=== PATIENT | male | born 1955 | race Caucasian/White ===

== ENCOUNTER 2021-07-01 07:20 | Outpatient (CLI) | payer MEDICARE, OTHER, SELFPAY ==
--- NOTE | 2021-07-01 07:00 | XR_ITS ---
WS: [id number] XR KUB [id number] REASON FOR EXAM: BILATERAL KIDNEY STONES FINDINGS: There are multiple large calculi within the right kidney with a partial staghorn calculus with a maxi mum dimension of 30 mm. The number, size, and position of these calculi have not changed since the pr evious examination of 11/08/2018. There are several moderate to large size calculi in the lower left kidney. These have not changed in number, size, or position compared to the previous examination of 11/08/2018. No other urinary tract calculi are identified in the abdomen or pelvis. No free air or retroperitoneal air. Unremarkable bowel gas pattern. No mass identified. XR/XR KUB [id number] IMPRESSION: Stable intrarenal calculi as above.
== END 2021-07-01 07:21 | disposition home or self-care (01) ==
PROVIDERS: PCP Internal Medicine; Visit Provider Urology
DX: N20.0 Calculus of kidney (principal); N40.1 Benign prostatic hyperplasia with lower urinary tract symptoms
CPT/HCPCS: 74018; 81003

== ENCOUNTER 2021-11-28 07:03 | Outpatient (CLI) | payer MEDICARE, OTHER, SELFPAY ==
[2021-11-28 08:37] LABS: Prostate Specific Antigen 0.752 ng/mL (0-4)
== END 2021-11-28 07:04 | disposition home or self-care (01) ==
LOC: LAB 07:07
PROVIDERS: PCP Internal Medicine; Visit Provider Urology
DX: N40.1 Benign prostatic hyperplasia with lower urinary tract symptoms (principal); N13.8 Other obstructive and reflux uropathy; N20.0 Calculus of kidney; R82.991 Hypocitraturia; N48.0 Leukoplakia of penis
CPT/HCPCS: 51741; 51798; 81003; 84153; 99213

== ENCOUNTER 2022-08-07 06:54 | Outpatient (CLI) | payer MEDICARE, OTHER, SELFPAY ==
--- NOTE | 2022-08-07 07:17 | XR_ITS ---
WS: [id number] XR KUB [id number] REASON FOR EXAM: Bilateral Kidney Stone FINDINGS: There are 5 identifiable calculi (3 mm to 29 mm) in the right kidney that are unchanged in size, numb er, and position compared to 07/01/2021. There are 3 identifiable oblique calculi (5 to 9 mm) overlying the lower pole of the left kidney whic h are unchanged in size, number, and position. No other urinary tract calculi are identified. No other significant abdominal abnormality. XR/XR KUB [id number] IMPRESSION: Stable multiple renal calculi as above.
== END 2022-08-07 06:55 | disposition home or self-care (01) ==
LOC: RAD 06:56
PROVIDERS: PCP Internal Medicine; Visit Provider Urology
DX: N20.0 Calculus of kidney (principal); N40.1 Benign prostatic hyperplasia with lower urinary tract symptoms; N13.8 Other obstructive and reflux uropathy; R82.991 Hypocitraturia; R82.992 Hyperoxaluria; N48.0 Leukoplakia of penis
CPT/HCPCS: 74018; 99213

== ENCOUNTER 2022-12-01 13:00 | Outpatient (CLI) | payer MEDICARE, OTHER, SELFPAY | END 2022-12-01 13:01 | disposition home or self-care (01) | LOC: SLEEP 12-02 09:04 | PROVIDERS: PCP Internal Medicine; Visit Provider Internal Medicine | DX: G47.10 Hypersomnia, unspecified (principal) | CPT/HCPCS: G0399 ==

== ENCOUNTER 2023-11-09 07:30 | Outpatient (CLI) | payer MEDICARE, OTHER, SELFPAY ==
--- NOTE | 2023-11-09 07:38 | XRR_ITS ---
PROCEDURE INFORMATION: Exam: XR Abdomen Exam date and time: 11/09/2023 7:52 AM Age: 68 years old Clinical indication: Condition or disease; Kidney or ureter condition; Other: Nephrolithiasis; Prior surgery; Surgery date: 6+ months; Surgery type: Stent placed in right ureter TECHNIQUE: Imaging protocol: Radiologic exam of the abdomen. Views: Frontal supine view of the abdomen. 1 View. COMPARISON: CR XR KUB [id number] 08/07/2022 7:30 AM FINDINGS: Tubes, catheters and devices: Right ureteral stent coils over the areas of the right renal pelvis into the urinary bladder. Gastrointestinal tract: Normal. No bowel dilation. Organs: Multiple bilateral renal stones again seen. Bones/joints: No acute osseous findings. XR/XR KUB [id number] IMPRESSION: 1. Right ureteral stent coils over the areas of the right renal pelvis into the urinary bladder. 2. Multiple bilateral renal stones again seen.
== END 2023-11-09 07:31 | disposition home or self-care (01) ==
LOC: RAD 07:32
PROVIDERS: PCP Internal Medicine; Visit Provider Urology
DX: N20.0 Calculus of kidney (principal)
CPT/HCPCS: 74018

== ENCOUNTER 2023-12-23 07:45 | Outpatient (CLI) | payer MEDICARE, OTHER, SELFPAY ==
--- NOTE | 2023-12-23 07:51 | XR_ITS ---
WS: [id number] XR KUB [id number] REASON FOR EXAM: NEPHROLITHIASIS FINDINGS: Compared to the examination of 11/09/2023, the right ureteral stent has been removed. Previously demonstrated large complex calculus in the mid to right upper kidney is no longer identifi able. There may be some small stone fragments remaining. Delete that The right lower pole calculi appear fragmented as on the previous examination of 11/09/2023. No change in position of the fragments. The 2 calculi in the left lower kidney are unchanged. No ureteral calculi are identified. XR/XR KUB [id number] IMPRESSION: Bilateral renal calculi with interval change as above.
== END 2023-12-23 07:46 | disposition home or self-care (01) ==
LOC: RAD 07:49
PROVIDERS: PCP Internal Medicine; Visit Provider Urology
DX: N20.0 Calculus of kidney (principal)
CPT/HCPCS: 74018

== ENCOUNTER 2024-06-01 08:23 | Outpatient (CLI) | payer MEDICARE, OTHER, SELFPAY ==
--- NOTE | 2024-06-01 08:36 | XRR_ITS ---
PROCEDURE INFORMATION: Exam: XR Abdomen Exam date and time: 06/01/2024 9:00 AM Age: 68 years old Clinical indication: Condition or disease; Kidney or ureter condition; Calculus (stone) in kidney; Additional info: Bilateral renal stones TECHNIQUE: Imaging protocol: Radiologic exam of the abdomen. Views: Frontal supine view of the abdomen. 1 View. COMPARISON: CR XR KUB [id number] 12/23/2023 7:55 AM FINDINGS: Gastrointestinal tract: No dilated loops of large or small bowel is appreciated. There are bilateral renal calculi. There is a 8.6 mm calculus overlying the right transverse process of the L4 vertebral body. This could be within the right ureter. Bones/joints: Unremarkable. XR/XR KUB [id number] IMPRESSION: 1. Bilateral renal calculi. 2. Possible ureteral calculus on the right.
== END 2024-06-01 08:24 | disposition home or self-care (01) ==
LOC: RAD 08:28
PROVIDERS: Family Provider Internal Medicine; PCP Internal Medicine; Visit Provider Urology
DX: N20.0 Calculus of kidney (principal)
CPT/HCPCS: 74018